=== PATIENT | male | born 1985 | race Caucasian/White ===

== ENCOUNTER 2023-03-15 16:59 | Outpatient (CLI) | payer OTHER, SELFPAY | END 2023-03-15 17:00 | disposition home or self-care (01) | LOC: LKVREF 17:02 | PROVIDERS: PCP Family Medicine; Visit Provider Physician Assistant | DX: M10.9 Gout, unspecified (principal) | CPT/HCPCS: 84550 ==

== ENCOUNTER 2024-10-25 14:38 | Emergency (ER) | payer OTHER, SELFPAY ==
[2024-10-25 14:42] VITALS: BP 141/93; PULSE 74; RESP 16; TEMP 36.3; O2SAT 95; BMI 27.1
--- NOTE | 2024-10-25 15:01 | CRLHL7_ITS ---
For Patients: As a result of the Century Cures Act, medical imaging exams and procedure reports are released immediately into your electronic medical record. You may view this report before your referring provider. If you have questions, please contact your health care provider. INDICATION: MID ABDOMEN PAIN TECHNIQUE: CT abdomen and pelvis acquired with 98 cc Isovue 370 IV contrast. COMPARISON: None. FINDINGS: Lower chest: The visualized lower lungs are aerated. No pleural or pericardial effusion. ABDOMEN: Liver: Normal enhancement. No focal suspicious hepatic lesions. Gallbladder and biliary: Normal gallbladder without radiopaque stone. Normal caliber bile ducts. Spleen: Normal size and enhancement. Pancreas: Normal enhancement without peripancreatic inflammatory changes or ductal dilatation. Adrenal glands: Normal adrenal glands. Kidneys and ureters: Normal enhancement. No radio-opaque calculi. No hydroureteronephrosis. Horseshoe kidney. GI tract: The stomach is relatively decompressed. Normal caliber small and large bowel loops. Normal appendix. Colonic diverticulosis with associated adjacent inflammatory stranding abutting the mid sigmoid. Vascular structures: Normal caliber abdominal aorta. Lymph nodes: No lymphadenopathy in the abdomen or pelvis by size criteria. Peritoneum: Trace free fluid in the pelvis. No free air or focal drainable collection. PELVIS: Genitourinary system: Normal urinary bladder. Normal-sized prostate. SKELETAL STRUCTURES AND SOFT TISSUES: No suspicious lytic or blastic lesions. IMPRESSION: Acute uncomplicated sigmoid diverticulitis. Recommend nonemergent colonoscopy correlation with direct visualization when patient symptoms has resolved. Please note that all CT scans at this facility use dose modulation, iterative reconstruction, and/or weight-based dosing when appropriate to reduce radiation dose to as low as reasonably achievable. Dictated by Don Arias MD @ 10/25/2024 4:34:27 PM (Electronically Signed)
--- NOTE | 2024-10-25 15:03 | ED_ITS ---
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 0 last couple of days he has had right lower quadrant pain primarily. He feels like he is unable to have a bowel movement. He did take some oral medication as he would help him move his bowels but was unsuccessful. He feels a little bit bloated, he has been running recently run a [employer]. Lives in [place]. Denies fever chills or rigors. Denies dysuria or hematuria. No chest pain or shortness of breath. He has had an appetite but maybe little less than normal. <Kip Santos MD - Last Filed: 10/29/24 07:54> Related Data Home medications: Previous Rx's ?Medication ?Instructions ?Recorded amoxicillin-potassium clavulanate 1 tab PO BID 7 days #14 tabs 10/25/24 1,000 mg-62.5 mg tablet,ext.rel 12hr (Augmentin XR) ondansetron 4 mg disintegrating 4 mg PO Q8H PRN nausea and 10/25/24 tablet vomiting #10 tabs oxycodone 5 mg capsule 5 mg PO Q6H PRN pain #10 cap s 10/25/24 <Kip Santos MD - Last Filed: 10/29/24 07:54> Allergies/adverse reactions: Allergies Allergy/AdvReac Type Severity Reaction Status Date / Time No Known Drug Allergies Allergy Verified 03/15/23 16:28 <Kip Santos MD - Last Filed: 10/29/24 07:54> Review of Systems Status of ROS: Reports: 6 or more systems reviewed and unremarkable except as noted in History and below <Kip Santos MD - Last Filed: 10/29/24 07:54> PFSH PFSH Social History: Social History Smoking Status: Never smoker Do you use any of these nicotine containing products: None How often do you have a drink containing alcohol: 2-3 times a week How many standard drinks containing alcohol do you have on a typical day: 1 or 2 How often do you have six or more drinks on one occasion: Never AUDIT-C Alcohol total score: 3 Non-prescribed substance use: denies use service: No <Kip Santos MD - Last Filed: 10/29/24 07:54> Exam Narrative: Exam Narrative: Objective: Vital signs look within normal limits He is alert oriented x3 no scleral icterus Pulse regular Abdomen is soft but he does have some mild voluntary guarding in his right lower quadrant. No palpable masses. He has not had intra-abdominal surgery. He denies any pain verbally Extremities are no edema neurologic nonfocal. <Kip Santos MD - Last Filed: 10/29/24 07:54> Const: Vital Signs, click to edit/add: Vital Signs - 24 hr 10/25/24 14:42 10/25/24 15:49 Temperature 97.3 F L 97.5 F L Pulse Rate [Pulse Oximeter] 74 62 Respiratory Rate 16 20 Blood Pressure [Ri ght Upper Arm] 141/93 H 145/90 H Pulse Oximetry 95 96 Oxygen Delivery Me thod Room Air Room Air <Kip Santos MD - Last Filed: 10/29/24 07:54> Vital Signs, click to edit/add: Vital Signs - 24 hr 10/25/24 14:42 10/25/24 15:49 Temperature 97.3 F L 97.5 F L Pulse Rate [Pulse Oximeter] 74 62 Respiratory Rate 16 20 Blood Pressure [Ri ght Upper Arm] 141/93 H 145/90 H Pulse Oximetry 95 96 Oxygen Delivery Me thod Room Air Room Air <Emery Sanches MD - Last Filed: 10/25/24 17:08> Course Vital Signs Vital signs: Initial Vital Signs Temperature 97.3 F L 10/25/24 14:42 Temperature Source Temporal Artery Scan 10/25/24 14:42 Pulse Rate 74 10/25/24 14:42 Respiratory Rate 16 10/25/24 14:42 Blood Pressure 141/93 H 07/23/25 14:42 Blood Pressure Mean 109 H 10/25/24 14:42 Blood Pressure Position Sitting 10/25/24 14:42 Pulse Oximetry 95 10/25/24 14:42 Oxygen Delivery Method Room Air 10/25/24 14:42 Vital Signs Temperature 97.3 F L 10/25/24 14:42 Pulse Rate 74 10/25/24 14:42 Respiratory Rate 16 10/25/24 14:42 Blood Pressure 141/93 H 10/25/24 14:42 Pulse Oximetry 95 10/25/24 14:42 Oxygen Delivery Method Room Air 10/25/24 14:42 Temperature 97.5 F L 10/25/24 15:49 Pulse Rate 62 10/25/24 15:49 Respiratory Rate 20 10/25/24 15:49 Blood Pressure 145/90 H 10/25/24 15:49 Pulse Oximetry 96 10/25/24 15:49 Oxygen Delivery Method Room Air 10/25/24 15:49 <Kip Santos MD - Last Filed: 10/29/24 07:54> Initial Vital Signs Temperature 97.3 F L 10/25/24 14:42 Temperature Source Temporal Artery Scan 10/25/24 14:42 Pulse Rate 74 10/25/24 14:42 Respiratory Rate 16 10/25/24 14:42 Blood Pressure 141/93 H 10/25/24 14:42 Blood Pressure Mean 109 H 10/25/24 14:42 Blood Pressure Position Sitting 10/25/24 14:42 Pulse Oximetry 95 10/25/24 14:42 Oxygen Delivery Method Room Air 10/25/24 14:42 Vital Signs Temperature 97.3 F L 10/25/24 14:42 Pulse Rate 74 10/25/24 14:42 Respiratory Rate 16 10/25/24 14:42 Blood Pressure 141/93 H 10/25/24 14:42 Pulse Oximetry 95 10/25/24 14:42 Oxygen Delivery Method Room Air 10/25/24 14:42 Temperature 97.5 F L 10/25/24 15:49 Pulse Rate 62 10/25/24 15:49 Respiratory Rate 20 10/25/24 15:49 Blood Pressure 145/90 H 10/25/24 15:49 Pulse Oximetry 96 10/25/24 15:49 Oxygen Delivery Method Room Air 10/25/24 15:49 <Emery Sanches MD - Last Filed: 10/25/24 17:08> Medications Administered Medications: Discontinued Medications Generic Name Dose Route Start Last Admin Trade Name Freq PRN Reason Stop Dose Admin Sodium Chloride 1,000 mls @ 6,000 mls/hr 10/25/24 15:15 10/25/24 16:20 0.9 % Sodium Chloride 1000 Ml IV 10/25/24 15:24 Infused .Q10M MIRANDA Infusion Morphine Sulfate 4 mg 10/25/24 15:46 10/25/24 15:53 Morphine 4 Mg/Ml Inj IVP 10/25/24 15:47 Not Given ONCE ONE <Kip Santos MD - Last Filed: 10/29/24 07:54> Discontinued Medications Generic Name Dose Route Start Last Admin Trade Name Freq PRN Reason Stop Dose Admin Sodium Chloride 1,000 mls @ 6,000 mls/hr 10/25/24 15:15 10/25/24 16:20 0.9 % Sodium Chloride 1000 Ml IV 10/25/24 15:24 Infused .Q10M MIRANDA Infusion Morphine Sulfate 4 mg 10/25/24 15:46 10/25/24 15:53 Morphine 4 Mg/Ml Inj IVP 10/25/24 15:47 Not Given ONCE ONE <Emery Sanches MD - Last Filed: 10/25/24 17:08> Medical Decision Making MDM Narrative Medical decision making narrative: [age] year white male with constipation type symptoms abdominal fullness feeling, with right lower quadrant pain. Concern would be that he has appendicitis or other intra-abdominal infection such as diverticulitis that may have slowed his bowels and stopped his bowel movement. 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 Will check his electrolytes and labs. Will also check a urinalysis. Differential be broad including intra-abdominal infection, constipation, dehydration causing constipation, appendicitis, diverticulitis. I think the above-mentioned workup is appropriate, and the patient was in agreement. Disposition pending findings. Addendum 3:52 p.m.: The [place] [address], CRP is negative. ER profile and LFTs look unremarkable. Amylase is normal. CT scan is pending of the abdomen pelvis with IV contrast. His pain ac tually got worse and we offered him morphine he would have to get a ride home. He is debating this. Surgical consult as needed, changes shift and Dr. Sanches will follow the lab results at this point and make disposition planning. <Kip Santos MD - Last Filed: 10/29/24 07:54> [age] year white male with constipation type symptoms abdominal fullness feeling, with right lower quadrant pain. Concern would be that he has appendicitis or other intra-abdominal infection such as diverticulitis that may have slowed his bowels and stopped his bowel movement. 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 Will check his electrolytes and labs. Will also check a urinalysis. Differential be broad including intra-abdominal infection, constipation, dehydration causing constipation, appendicitis, diverticulitis. I think the above-mentioned workup is appropriate, and the patient was in agreement. Disposition pending findings. Addendum 3:52 p.m.: The patient [place] [address], CRP is negative. ER profile and LFTs look unremarkable. Amylase is normal. CT scan is pending of the abdomen pelvis with IV contrast. His pain actually got worse and we offered him morphine he would have to get a ride home. He is debating this. Surgical consult as needed, changes shift and Dr. Sanches will follow the lab results at this point and make disposition planning. Patient signed out to Dr. Sanches at shift change. CT scan result came back at 4:[address] abdomen/pelvis IMPRESSION: Acute uncomplicated sigmoid diverticulitis. Recommend nonemergent colonoscopy correlation with direct visualization when patient symptoms has resolved. Discussed with patient, and his by phone. Discussed that CT scan shows uncomplicated sigmoid diverticulitis. She is currently on day 4 symptoms. We discussed diet MO trial and current supportive management of diverticulitis without antibiotics. However since he has now been symptomatic for 4 days and is getting worse day by day, we made a plan to give him 24 hours of symptom management. He will start antibiotics tomorrow if not improving. Will give him 36-48 hours of antibiotics and if not improving by Wednesday he needs to return to the ER We also discussed that if he worsens at any time he should return to the ER right away. Prescriptions for oxycodone and Zofran for symptomatic relief. Discussed opiate precautions constipation. Prescription for Augmentin to treat for diverticulitis. start if not improving within 24 hours Recommended outpatient follow-up for colonoscopy within 2-3 months. Discussed in detail with the patient and his . <Emery Sanches MD - Last Filed: 10/25/24 17:08> Lab Data Labs: Lab Results 10/25/24 10/25/24 Range/Units 15:21 16:10 WBC 12.09 H (4.50-11.00) K/uL RBC 5.19 (4.30-5.90) m/uL Hgb 16.0 (13.5-17.5) gm/dL Hct 46.3 (37.0-53.0) % MCV 89 (80-100) fL MCH 31 (26-34) pg MCHC 35 (32-36) gm/dL RDW Coeff of Sara 11.8 (11.5-15.5) % Plt Count 297 (140-440) K/uL Neut % (Auto) 74.1 H (42.0-72.0) % Lymph % (Auto) 15.6 L (20-44) % [place] % (Auto) 8.9 (0.0-11.0) % Eos % (Auto) 0.9 (0.0-7.0) % Baso % (Auto) 0.3 (0.0-3.0) % Neut # (Auto) 9.00 H (1.7-7.0) K/uL Lymph # (Auto) 1.90 (0.90-2.90) K/uL [place] # (Auto) 1.10 H (0.00-0.90) K/UL Eos # (Auto) 0.10 (0.00-0.50) K/uL Baso # (Auto) 0.00 (0.00-0.30) K/uL Abs Immat Gran (auto) 0.00 (0.00-0.30) K/uL Imm/Tot Granulo (auto) 0.2 % Sodium 139 (135-149) mmol/L Potassium 4.2 (3.6-5.1) mmol/L Chloride 105 (96-114) mmol/L Carbon Dioxide 29 (20-32) mmol/L Anion Gap 5 L (7-15) mEq/L BUN 13 (5-24) mg/dL Creatinine 1.1 (0.5-1.5) mg/dL Estimated Creat Clear 97.98 Estimated GFR 87 ml/min Glucose 98 (60-115) mg/dL Calcium 9.4 (8.4-10.6) mg/dL Total Bilirubin 1.0 (0.1-1.5) mg/dL Direct Bilirubin 0.1 (0.0-0.5) mg/dL AST 34 (12-35) U/L ALT 29 (4-50) U/L Alkaline Phosphatase 90 (40-150) U/L C-Reactive Protein < 0.5 L (0.5-1.0) mg/dL Total Protein 8.5 H (6.0-8.3) g/dL Albumin 4.9 (3.3-5.0) g/dL Amylase 64 (18-89) U/L Urine Color Yellow (Yellow) Urine Appearance Clear (Clear) Urine pH 7.0 (5.0-8.5) Ur Specific [place] 1.010 (1.000-1.030) Urine Protein Negative (Negative) Urine Glucose (UA) Negative (Negative) Urine Ketones Negative (Negative) Urine Blood Negative (Negative) Urine Nitrite Negative (Negative) Urine Bilirubin Negative (Negative) Urine Urobilinogen 0.2 (0.2-1.0) Ur Leukocyte Esterase Negative (Negative) Urine RBC 0-2 (0-2) Urine WBC 0-2 (0-5) Ur Squamous Epith Cells Few (None-Few) Urine Bacteria None (None) <Kip Santos MD - Last Filed: 10/29/24 07:54> Lab Results 10/25/24 10/25/24 Range/Units 15:21 16:10 WBC 12.09 H (4.50-11.00) K/uL RBC 5.19 (4.30-5.90) m/uL Hgb 16.0 (13.5-17.5) gm/dL Hct 46.3 (37.0-53.0) % MCV 89 (80-100) fL MCH 31 (26-34) pg MCHC 35 (32-36) gm/dL RDW Coeff of Sara 11.8 (11.5-15.5) % Plt Count 297 (140-440) K/uL Neut % (Auto) 74.1 H (42.0-72.0) % Lymph % (Auto) 15.6 L (20-44) % [place] % (Auto) 8.9 (0.0-11.0) % Eos % (Auto) 0.9 (0.0-7.0) % Baso % (Auto) 0.3 (0.0-3.0) % Neut # (Auto) 9.00 H (1.7-7.0) K/uL Lymph # (Auto) 1.90 (0.90-2.90) K/uL [place] # (Auto) 1.10 H (0.00-0.90) K/UL Eos # (Auto) 0.10 (0.00-0.50) K/uL Baso # (Auto) 0.00 (0.00-0.30) K/uL Abs Immat Gran (auto) 0.00 (0.00-0.30) K/uL Imm/Tot Granulo (auto) 0.2 % Sodium 139 (135-149) mmol/L Potassium 4.2 (3.6-5.1) mmol/L Chloride 105 (96-114) mmol/L Carbon Dioxide 29 (20-32) mmol/L Anion Gap 5 L (7-15) mEq/L BUN 13 (5-24) mg/dL Creatinine 1.1 (0.5-1.5) mg/dL Estimated Creat Clear 97.98 Estimated GFR 87 ml/min Glucose 98 (60-115) mg/dL Calcium 9.4 (8.4-10.6) mg/dL Total Bilirubin 1.0 (0.1-1.5) mg/dL Direct Bilirubin 0.1 (0.0-0.5) mg/dL AST 34 (12-35) U/L ALT 29 (4-50) U/L Alkaline Phosphatase 90 (40-150) U/L C-Reactive Protein < 0.5 L (0.5-1.0) mg/dL Total Protein 8.5 H (6.0-8.3) g/dL Albumin 4.9 (3.3-5.0) g/dL Amylase 64 (18-89) U/L Urine Color Yellow (Yellow) Urine Appearance Clear (Clear) Urine pH 7.0 (5.0-8.5) Ur Specific [place] 1.010 (1.000-1.030) Urine Protein Negative (Negative) Urine Glucose (UA) Negative (Negative) Urine Ketones Negative (Negative) Urine Blood Negative (Negative) Urine Nitrite Negative (Negative) Urine Bilirubin Negative (Negative) Urine Urobilinogen 0.2 (0.2-1.0) Ur Leukocyte Esterase Negative (Negative) Urine RBC 0-2 (0-2) Urine WBC 0-2 (0-5) Ur Squamous Epith Cells Few (None-Few) Urine Bacteria None (None) <Emery Sanches MD - Last Filed: 10/25/24 17:08> Discharge Plan Discharge Clinical Impression: Diverticulitis <Kip Santos MD - Last Filed: 10/29/24 07:54> Patient Disposition: Home, Self-Care <Kip Santos MD - Last Filed: 10/29/24 07:54> Condition: Stable <Kip Santos MD - Last Filed: 10/29/24 07:54> Instructions: Diverticulitis (DC) <Kip Santos MD - Last Filed: 10/29/24 07:54> Additional Instructions: As we discussed, please start the antibiotics tomorrow if you are not improving by then. After you start the antibiotics it should take 48 hours or so before you start to feel better. If you are not feeling dramatically better by Wednesday, please come back to the ER to be rechecked. If you have any worsening symptoms at any point, come back to the ER right away- for instance if you have worsening pain, fever, bloody stools, worsening nausea, inability to stay hydrated. Please follow-up with your doctor for recheck within 1-2 weeks. Please ask your doctor to refer you for colonoscopy to be done in the next 2-3 months. Use caution with pain killers because they can cause dizziness, drowsiness, constipation, and can be addictive. <Kip Santos MD - Last Filed: 10/29/24 07:54> Prescriptions: New oxycodone 5 mg capsule 5 mg PO Q6H PRN (Reason: pain) Qty: 10 0RF ondansetron 4 mg tablet,disintegrating 4 mg PO Q8H PRN (Reason: nausea and vomiting) Qty: 10 0RF amoxicillin-pot clavulanate [Augmentin XR] 1,000-62.5 mg tablet extended release 12 hr 1 tab PO BID 7 Days Qty: 14 0RF <Kip Santos MD - Last Filed: 10/29/24 07:54> Follow Up/Referrals: Frank Callahan MD [Primary Care Provider, Family Practice] <Kip Santos MD - Last Filed: 10/29/24 07:54> [facility] <Kip Santos MD - Last Filed: 10/29/24 07:54>
[2024-10-25 15:31] LABS: Hematocrit 46.3 % (37.0-53.0); Hemoglobin* 16.0 gm/dL (13.5-17.5); Immature Granulocytes Pct Auto 0.2 %; Mean Corpuscular HGB Conc 35 gm/dL (32-36); Mean Corpuscular Hemoglobin 31 pg (26-34); Mean Corpuscular Volume 89 fL (80-100); RDW Coefficient of Variation % 11.8 % (11.5-15.5); Red Blood Count 5.19 m/uL (4.30-5.90); White Blood Count* 12.09 K/uL (4.50-11.00)
[2024-10-25 15:38] LABS: Immature Granulocytes Abs Auto 0.00 K/uL (0.00-0.30); Lymphocytes Absolute Auto 1.90 K/uL (0.90-2.90); Slide Review Reflex No
[2024-10-25 15:43] LABS: Albumin* 4.9 g/dL (3.3-5.0); Chloride* 105 mmol/L (96-114); Sodium* 139 mmol/L (135-149)
[2024-10-25 15:44] LABS: Potassium* 4.2 mmol/L (3.6-5.1)
[2024-10-25 15:46] LABS: Alanine Aminotransferase* 29 U/L (4-50); Alkaline Phosphatase* 90 U/L (40-150); Anion Gap 5 mEq/L (7-15); Aspartate Amino Transferase* 34 U/L (12-35); Bilirubin Direct* 0.1 mg/dL (0.0-0.5); Bilirubin Total* 1.0 mg/dL (0.1-1.5); Blood Urea Nitrogen* 13 mg/dL (5-24); Carbon Dioxide* 29 mmol/L (20-32); Creatinine* 1.1 mg/dL (0.5-1.5); Est. Creatinine Clearance* 97.98; Estimated Glomerular Filt Rate 87 ml/min; Total Protein* 8.5 g/dL (6.0-8.3)
[2024-10-25 15:47] LABS: Calcium* 9.4 mg/dL (8.4-10.6); Glucose* 98 mg/dL (60-115)
[2024-10-25 15:49] VITALS: BP 145/90; PULSE 62; RESP 20; TEMP 36.4; O2SAT 96
[2024-10-25 16:31] LABS: Appearance Urine Clear (Clear)
== END 2024-10-25 17:17 | disposition home or self-care (01) ==
PROVIDERS: Family Medicine; Emergency Provider Emergency Medicine; PCP Family Medicine
DX: K57.30 Diverticulosis of large intestine without perforation or abscess without bleeding (principal)
CPT/HCPCS: 36415; 74177; 80048; 80076; 81001; 82150; 85025; 86140; 87086; 99284; 99285; J7030; Q9967